=== PATIENT | female | born 1995 | race Caucasian/White ===

== ENCOUNTER 2017-07-05 04:16 | Outpatient (CLI) | payer BC ==
[~2017-07-05] VITALS: Ht 167.6 cm; Wt 78.0 kg
[2017-07-05 04:55] LABS: MICROSCOPIC INDICATED
[2017-07-05] MEDS ORDERED: FLU VACC QS2017-18 (36MOS+) UP/PF 0.5 ML IM-VACC ONE (05:00)
== END 2017-07-05 05:22 | disposition home or self-care (01) ==
LOC: LDOP 04:16
PROVIDERS: ATTEND Obstetrics & Gynecology
DX: O26.892 Other specified pregnancy related conditions, second trimester (principal); R10.9 Unspecified abdominal pain; Z3A.23 23 weeks gestation of pregnancy
CPT/HCPCS: 59025; 81001; 87086; 99201; G0463

== ENCOUNTER 2017-09-01 12:32 | Outpatient (CLI) | payer BC ==
[~2017-09-01] VITALS: Ht 167.6 cm; Wt 90.5 kg
[2017-09-01 12:53] VITALS: BP 133/71
== END 2017-09-01 13:45 | disposition home or self-care (01) ==
LOC: LDOP 12:32
PROVIDERS: ATTEND Obstetrics & Gynecology
DX: O36.8130 Decreased fetal movements, third trimester, not applicable or unspecified (principal); O26.893 Other specified pregnancy related conditions, third trimester; O62.9 Abnormality of forces of labor, unspecified; R10.9 Unspecified abdominal pain; Z3A.31 31 weeks gestation of pregnancy
CPT/HCPCS: 59025; 99211; G0463

== ENCOUNTER 2017-09-18 17:59 | Outpatient (CLI) | payer BC ==
[~2017-09-18] VITALS: Ht 167.6 cm; Wt 90.9 kg
[2017-09-18] MEDS ORDERED: TERBUTALINE 1 MG/ML, 1ML ONE (18:22)
[2017-09-18] MEDS ORDERED: TERBUTALINE 1 MG/ML, 1ML SQ ONE (18:30)
[2017-09-18 18:39] VITALS: BP 147/75
[2017-09-18 19:05] LABS: MICROSCOPIC INDICATED
[2017-09-18 19:39] LABS: BASOPHILS # (AUTO) 0.02 x10^3/uL (0-0.3); BASOPHILS % (AUTO) 0 % (0-1); EOSINOPHILS # (AUTO) 0.01 x10^3/uL (0-0.8); EOSINOPHILS % (AUTO) 0 % (1-7); LYMPHOCYTES # (AUTO) 1.77 x10^3/uL (1-6.1); LYMPHOCYTES % (AUTO) 17 % (22-44); MD NO; MEAN CORPUSCULAR HEMOGLOBIN 32.4 pg (27.0-34.8); MEAN CORPUSCULAR HGB CONC 34.7 g/dL (32.4-35.8); MEAN CORPUSCULAR VOLUME 93.4 fL (80-100); MEAN PLATELET VOLUME 9.6 fL (7.4-10.4); MONOCYTES # (AUTO) 0.41 x10^3/uL (0-1.4); MONOCYTES % (AUTO) 4 % (2-9); NEUTROPHILS # (AUTO) 8.19 x10^3/uL (1.8-8.0); NEUTROPHILS % (AUTO) 79 % (42-75); PLATELET COUNT 172 x10^3/uL (130-400); RED BLOOD COUNT 4.24 x10^6/uL (3.82-5.3); RED CELL DISTRIBUTION WIDTH 13.6 % (9.6-15.2)
[2017-09-18 19:49] LABS: ALANINE AMINOTRANSFERASE 16 U/L (12-78); ALBUMIN 2.8 g/dL (3.4-5.0); ANION GAP 9 mmol/L (5-15); CALCIUM 9.2 mg/dL (8.5-10.1); CHLORIDE 105 mmol/L (98-107); CREATININE 0.72 mg/dL (0.55-1.02)
[2017-09-18 19:50] LABS: ALKALINE PHOSPHATASE 173 U/L (45-117); BILIRUBIN,TOTAL 0.1 mg/dL (0.2-1.0); TOTAL PROTEIN 6.8 g/dL (6.4-8.2)
== END 2017-09-18 20:44 | disposition home or self-care (01) ==
LOC: LDOP 17:59
PROVIDERS: ATTEND Obstetrics & Gynecology
DX: O62.9 Abnormality of forces of labor, unspecified (principal); Z3A.34 34 weeks gestation of pregnancy
CPT/HCPCS: 36415; 59025; 80053; 81001; 82570; 82731; 84156; 84550; 85025; 87086; 99211; J3105; 81050; G0463

== ENCOUNTER 2017-09-29 04:08 | Inpatient (IN) | payer BC ==
[~2017-09-29] VITALS: Ht 167.6 cm; Wt 90.9 kg
[2017-09-29 04:49] VITALS: BP 142/86
[2017-09-29 04:58] LABS: MICROSCOPIC INDICATED
[2017-09-29 06:08] LABS: ALBUMIN 2.5 g/dL (3.4-5.0); ANION GAP 9 mmol/L (5-15); CALCIUM 9.1 mg/dL (8.5-10.1); CHLORIDE 106 mmol/L (98-107)
[2017-09-29 06:12] LABS: ALANINE AMINOTRANSFERASE 20 U/L (12-78); ALKALINE PHOSPHATASE 165 U/L (45-117); BILIRUBIN,TOTAL 0.6 mg/dL (0.2-1.0); CREATININE 0.73 mg/dL (0.55-1.02); TOTAL PROTEIN 6.3 g/dL (6.4-8.2)
[2017-09-29 06:52] LABS: BASOPHILS # (AUTO) 0.02 x10^3/uL (0-0.3); BASOPHILS % (AUTO) 0 % (0-1); EOSINOPHILS # (AUTO) 0.01 x10^3/uL (0-0.8); EOSINOPHILS % (AUTO) 0 % (1-7); LYMPHOCYTES # (AUTO) 1.13 x10^3/uL (1-6.1); LYMPHOCYTES % (AUTO) 11 % (22-44); MD NO; MEAN CORPUSCULAR HEMOGLOBIN 32.4 pg (27.0-34.8); MEAN CORPUSCULAR HGB CONC 34.5 g/dL (32.4-35.8); MEAN CORPUSCULAR VOLUME 93.9 fL (80-100); MEAN PLATELET VOLUME 10.3 fL (7.4-10.4); MONOCYTES # (AUTO) 0.64 x10^3/uL (0-1.4); MONOCYTES % (AUTO) 6 % (2-9); NEUTROPHILS # (AUTO) 8.29 x10^3/uL (1.8-8.0); NEUTROPHILS % (AUTO) 82 % (42-75); PLATELET COUNT 156 x10^3/uL (130-400); RED BLOOD COUNT 3.98 x10^6/uL (3.82-5.3); RED CELL DISTRIBUTION WIDTH 13.6 % (9.6-15.2)
[2017-09-29] MEDS ORDERED: BETAMETHASONE 6 MG/ML, 5ML IM ONE (07:58)
[2017-09-29] MEDS: BETAMETHASONE 6 MG/ML, 5ML IM SCH (08:02)
[2017-09-29] MEDS ORDERED: ACETAMINOPHEN 325 MG TABLET ONE ×2 (10:21→20:26)
[2017-09-29] MEDS: ACETAMINOPHEN 325 MG TABLET PO PRN ×2 (10:23→20:28)
[2017-09-29] MEDS ORDERED: CALCIUM CARBONATE 500 MG TAB.CHEW ONE (20:26)
[2017-09-29] MEDS ORDERED: PRENATAL VIT/IRON/FA 1 EACH TABLET ONE (20:26)
[2017-09-29] MEDS: DOCUSATE 100 MG CAPSULE PO SCH (20:28)
[2017-09-29] MEDS: CALCIUM CARBONATE 500 MG TAB.CHEW PO PRN (20:28)
[2017-09-29] MEDS: PRENATAL VIT/IRON/FA 1 EACH TABLET PO SCH (20:28)
[2017-09-30 05:28] LABS: CHLORIDE 107 mmol/L (98-107)
[2017-09-30 05:33] LABS: BASOPHILS % (AUTO) 0 % (0-1); EOSINOPHILS % (AUTO) 0 % (1-7); LYMPHOCYTES # (AUTO) 1.11 x10^3/uL (1-6.1); LYMPHOCYTES % (AUTO) 8 % (22-44); MD NO; MEAN CORPUSCULAR HEMOGLOBIN 32.6 pg (27.0-34.8); MEAN CORPUSCULAR VOLUME 93.2 fL (80-100); MEAN PLATELET VOLUME 9.8 fL (7.4-10.4); MONOCYTES % (AUTO) 4 % (2-9); NEUTROPHILS # (AUTO) 12.29 x10^3/uL (1.8-8.0); NEUTROPHILS % (AUTO) 88 % (42-75); PLATELET COUNT 164 x10^3/uL (130-400); RED BLOOD COUNT 4.04 x10^6/uL (3.82-5.3); RED CELL DISTRIBUTION WIDTH 13.7 % (9.6-15.2)
[2017-09-30 05:38] LABS: ALANINE AMINOTRANSFERASE 22 U/L (12-78); ALBUMIN 2.5 g/dL (3.4-5.0); ALKALINE PHOSPHATASE 171 U/L (45-117); ANION GAP 7 mmol/L (5-15); BILIRUBIN,TOTAL 0.3 mg/dL (0.2-1.0); CALCIUM 8.6 mg/dL (8.5-10.1); TOTAL PROTEIN 6.3 g/dL (6.4-8.2)
[2017-09-30] MEDS: BETAMETHASONE 6 MG/ML, 5ML IM SCH (07:53)
[2017-09-30] MEDS ORDERED: NEWBORN KIT ONE (08:51)
[2017-09-30] MEDS ORDERED: OXYTOCIN 30U/ 0.9% NaCL 500ML 500 ML IV ONE (08:52)
[2017-09-30] MEDS ORDERED: MISOPROSTOL 25 MCG TABLET VG PRN (09:00)
[2017-09-30] MEDS ORDERED: FENTANYL PF 100 MCG/2ML IVPush PRN (09:00)
[2017-09-30] MEDS: DOCUSATE 100 MG CAPSULE PO SCH ×2 (09:00→21:00)
[2017-09-30] MEDS ORDERED: ONDANSETRON 2MG/ML, 2ML IVPush PRN (09:00)
[2017-09-30] MEDS: LACTATED RINGERS 1,000 ML IV SCH ×3 (09:21→20:54)
[2017-09-30] MEDS ORDERED: OXYTOCIN 30U/ 0.9% NaCL 500ML 500 ML IV PRN (09:32)
[2017-09-30] MEDS ORDERED: AMPICILLIN 2 GM in SODIUM CHLORIDE 0.9% 100 ML IVPB STA (09:32)
[2017-09-30] MEDS ORDERED: OXYTOCIN 30U/ 0.9% NaCL 500ML 500 ML ONE (09:39)
[2017-09-30] MEDS: AMPICILLIN 1 GM in SODIUM CHLORIDE 0.9% 50 ML IVPB SCH ×3 (13:47→22:05)
[2017-09-30] MEDS ORDERED: FENTANYL PF 100 MCG/2ML ONE (16:02)
[2017-09-30] MEDS ORDERED: FENTANYL/BUPIV./NS/PF 250 ML EPIDCONT SCH (17:37)
[2017-09-30] MEDS ORDERED: FENTANYL/BUPIV./NS/PF 250 ML EPIDCONT ONE (17:40)
[2017-09-30] MEDS ORDERED: BUPIVACAINE/PF 0.25% ONE (17:40)
[2017-09-30] MEDS ORDERED: NALOXONE 0.4 MG/ML, 1ML IVPush PRN (18:00)
[2017-09-30] MEDS ORDERED: EPHEDRINE 50 MG/ML, 1ML IVPush PRN (18:00)
[2017-09-30] MEDS ORDERED: LACTATED RINGERS 1,000 ML IVBOLUS PRN (18:00)
[2017-09-30] MEDS ORDERED: CALCIUM CARBONATE 500 MG TAB.CHEW ONE (19:38)
[2017-09-30] MEDS: CALCIUM CARBONATE 500 MG TAB.CHEW PO PRN (19:40)
[2017-09-30] MEDS: PRENATAL VIT/IRON/FA 1 EACH TABLET PO SCH (21:00)
[2017-09-30] MEDS: AMPICILLIN 1 GM in SODIUM CHLORIDE 0.9% 100 ML IVPB SCH (23:00)
[2017-10-01] MEDS ORDERED: LIDOCAINE 1%, 20ML ONE (00:40)
[2017-10-01] MEDS ORDERED: MISOPROSTOL 200 MCG TABLET ONE (00:40)
[2017-10-01] MEDS ORDERED: CALCIUM CARBONATE 500 MG TAB.CHEW ONE (00:47)
[2017-10-01] MEDS: LACTATED RINGERS 1,000 ML IV SCH ×2 (00:52→01:37)
[2017-10-01] MEDS: CALCIUM CARBONATE 500 MG TAB.CHEW PO PRN (00:53)
[2017-10-01] MEDS: OXYTOCIN 30U/ 0.9% NaCL 500ML 500 ML IV SCH ×6 (01:40→12:06)
[2017-10-01] MEDS ORDERED: OXYTOCIN 30U/ 0.9% NaCL 500ML 500 ML ONE (02:06)
[2017-10-01] MEDS ORDERED: ACETAMINOPHEN 325 MG TABLET PO PRN (02:30)
[2017-10-01] MEDS ORDERED: BISACODYL 10 MG SUPP PR PRN (02:30)
[2017-10-01] MEDS ORDERED: ONDANSETRON 2MG/ML, 2ML IV PRN (02:30)
[2017-10-01] MEDS ORDERED: OXYcodone/APAP 5/325MG TABLET PO PRN (02:30)
[2017-10-01] MEDS ORDERED: CALCIUM CARBONATE 500 MG TAB.CHEW PO PRN (02:30)
[2017-10-01] MEDS ORDERED: MISOPROSTOL 200 MCG TABLET PR PRN (02:30)
[2017-10-01] MEDS: AMPICILLIN 1 GM in SODIUM CHLORIDE 0.9% 100 ML IVPB SCH (03:00)
[2017-10-01] MEDS ORDERED: IBUPROFEN 600 MG TABLET ONE (03:58)
[2017-10-01] MEDS ORDERED: OXYcodone/APAP 5/325MG TABLET ONE (03:58)
[2017-10-01] MEDS: IBUPROFEN 600 MG TABLET PO PRN ×2 (04:00→18:33)
[2017-10-01] MEDS: OXYcodone/APAP 5/325MG TABLET PO PRN ×3 (04:00→18:33)
[2017-10-01 04:50] VITALS: BP 130/78
[2017-10-01 08:00] VITALS: BP 128/67
[2017-10-01] MEDS: PRENATAL VIT/IRON/FA 1 EACH TABLET PO SCH (08:46)
[2017-10-01] MEDS: DOCUSATE 100 MG CAPSULE PO PRN (08:47)
[2017-10-01 09:55] LABS: MEAN CORPUSCULAR HEMOGLOBIN 31.9 pg (27.0-34.8); MEAN CORPUSCULAR VOLUME 93.8 fL (80-100); MEAN PLATELET VOLUME 9.6 fL (7.4-10.4); PLATELET COUNT 171 x10^3/uL (130-400); RED BLOOD COUNT 3.84 x10^6/uL (3.82-5.3); RED CELL DISTRIBUTION WIDTH 13.9 % (9.6-15.2)
[2017-10-01 10:14] LABS: BASOPHILS # (AUTO) 0.02 x10^3/uL (0-0.3); BASOPHILS % (AUTO) 0 % (0-1); EOSINOPHILS % (AUTO) 0 % (1-7); LYMPHOCYTES # (AUTO) 1.17 x10^3/uL (1-6.1); LYMPHOCYTES % (AUTO) 6 % (22-44); MD SCAN; MONOCYTES # (AUTO) 0.66 x10^3/uL (0-1.4); MONOCYTES % (AUTO) 4 % (2-9); NEUTROPHILS % (AUTO) 90 % (42-75)
[2017-10-01 12:00] VITALS: BP 117/70
[2017-10-01 16:00] VITALS: BP 120/68
[2017-10-01 21:00] VITALS: BP 124/76
[2017-10-02] MEDS: IBUPROFEN 600 MG TABLET PO PRN ×3 (05:42→23:18)
[2017-10-02] MEDS: PRENATAL VIT/IRON/FA 1 EACH TABLET PO SCH (07:43)
[2017-10-02] MEDS: DOCUSATE 100 MG CAPSULE PO PRN (07:43)
[2017-10-02 07:49] VITALS: BP 107/64
[2017-10-02 20:00] VITALS: BP 124/73
[2017-10-03] MEDS: IBUPROFEN 600 MG TABLET PO PRN (07:31)
[2017-10-03 07:45] VITALS: BP 148/90
[2017-10-03] MEDS: PRENATAL VIT/IRON/FA 1 EACH TABLET PO SCH (09:00)
[2017-10-03] MEDS ORDERED: IBUP-1222 PO (09:04)
[2017-10-03] MEDS ORDERED: DIPH,PERTUSS(ACELL),TET VAC/PF NC IM-VACC ONE ×2 (10:01→10:30)
== END 2017-10-03 10:44 | disposition home or self-care (01) | DRG 775 ==
LOC: LDOP 04:08 → LDIP 07:36 → OBSVTOIN 12:26 → LDIP 09-30 08:46 → 2NW 10-01 04:43
PROVIDERS: ADMIT Obstetrics & Gynecology; ATTEND Obstetrics & Gynecology
PROC: 10E0XZZ Delivery of Products of Conception, External Approach (ICD-10-PCS; principal; 2017-10-01)
PROC: 10907ZC Drainage of Amniotic Fluid, Therapeutic from Products of Conception, Via Natural or Artificial Opening (ICD-10-PCS; 2017-10-01)
PROC: 0HQ9XZZ Repair Perineum Skin, External Approach (ICD-10-PCS; 2017-10-01)
PROC: 3E033VJ Introduction of Other Hormone into Peripheral Vein, Percutaneous Approach (ICD-10-PCS; 2017-10-01)
PROC: 3E0R3BZ Introduction of Anesthetic Agent into Spinal Canal, Percutaneous Approach (ICD-10-PCS; 2017-10-01)
PROC: 00HU33Z Insertion of Infusion Device into Spinal Canal, Percutaneous Approach (ICD-10-PCS; 2017-10-01)
DX: O14.14 Severe pre-eclampsia complicating childbirth (principal); O26.833 Pregnancy related renal disease, third trimester; Z37.0 Single live birth; O99.52 Diseases of the respiratory system complicating childbirth; O99.344 Other mental disorders complicating childbirth; F32.9 Major depressive disorder, single episode, unspecified; J45.909 Unspecified asthma, uncomplicated; N28.9 Disorder of kidney and ureter, unspecified; Z3A.36 36 weeks gestation of pregnancy; O76 Abnormality in fetal heart rate and rhythm complicating labor and delivery; O70.0 First degree perineal laceration during delivery; O69.81X0 Labor and delivery complicated by cord around neck, without compression, not applicable or unspecified; Z23 Encounter for immunization
CPT/HCPCS: 36415; 76816; 80053; 81001; 81050; 84156; 84550; 85025; 86850; 86900; 87081; 87086; 90715; G0378; J0290; J0702; J3010; J3490; J2590; J7120

== ENCOUNTER 2017-10-09 16:05 | Inpatient (IN) | payer BC ==
[~2017-10-09] VITALS: Ht 167.6 cm; Wt 84.2 kg
[~2017-10-09 16:05] MED LIST: IBUP-1222 PO
[2017-10-09] MEDS ORDERED: GENTAMICIN PER PHARMACY MC STA (16:39)
[2017-10-09] MEDS ORDERED: CLINDAMYCIN PMX 900MG/50ML 50 ML IV ONE (17:00)
[2017-10-09] MEDS ORDERED: SODIUM CHLORIDE FLUSH 10ML SYR IVF ONE (17:00)
[2017-10-09] MEDS ORDERED: SODIUM CHLORIDE 0.9% 1,000ML IVBOLUS ONE (17:00)
[2017-10-09] MEDS ORDERED: GENTAMICIN 350 MG in SODIUM CHLORIDE 0.9% 100 ML IV ONE (17:00)
[2017-10-09 17:12] LABS: CLUE CELLS NONE SEEN (NONE SEEN); WET PREP WBCS FEW (FEW)
[2017-10-09 17:19] LABS: BASOPHILS # (AUTO) 0.03 x10^3/uL (0-0.3); BASOPHILS % (AUTO) 0 % (0-1); EOSINOPHILS # (AUTO) 0.04 x10^3/uL (0-0.8); EOSINOPHILS % (AUTO) 0 % (1-7); LYMPHOCYTES # (AUTO) 1.13 x10^3/uL (1-6.1); LYMPHOCYTES % (AUTO) 10 % (22-44); MD NO; MEAN CORPUSCULAR HGB CONC 34.4 g/dL (32.4-35.8); MEAN CORPUSCULAR VOLUME 93.3 fL (80-100); MEAN PLATELET VOLUME 8.4 fL (7.4-10.4); MONOCYTES # (AUTO) 0.53 x10^3/uL (0-1.4); MONOCYTES % (AUTO) 5 % (2-9); NEUTROPHILS # (AUTO) 9.85 x10^3/uL (1.8-8.0); NEUTROPHILS % (AUTO) 85 % (42-75); PLATELET COUNT 289 x10^3/uL (130-400); RED BLOOD COUNT 4.19 x10^6/uL (3.82-5.3); RED CELL DISTRIBUTION WIDTH 13.4 % (9.6-15.2)
[2017-10-09 17:27] LABS: ALBUMIN 3.1 g/dL (3.4-5.0); ANION GAP 9 mmol/L (5-15); CALCIUM 8.3 mg/dL (8.5-10.1); CHLORIDE 107 mmol/L (98-107); CREATININE 0.81 mg/dL (0.55-1.02)
[2017-10-09] MEDS ORDERED: CLINDAMYCIN PMX 900MG/50ML 50 ML ONE (18:49)
[2017-10-09] MEDS ORDERED: ACETAMINOPHEN 325 MG TABLET PO ONE (19:30)
[2017-10-09] MEDS ORDERED: ACETAMINOPHEN 325 MG TABLET ONE (19:34)
[2017-10-09 20:40] VITALS: BP 119/69
[2017-10-09] MEDS ORDERED: GENTAMICIN PER PHARMACY MC PRN (22:00)
[2017-10-09] MEDS ORDERED: ACETAMINOPHEN 325 MG TABLET PO PRN (22:00)
[2017-10-09] MEDS ORDERED: OXYcodone/APAP 5/325MG TABLET PO PRN (22:00)
[2017-10-09] MEDS ORDERED: ONDANSETRON 4 MG TABLET PO PRN (22:00)
[2017-10-09] MEDS ORDERED: ONDANSETRON 2MG/ML, 2ML IV PRN (22:00)
[2017-10-09] MEDS: IBUPROFEN 600 MG TABLET PO PRN (22:15)
[2017-10-09] MEDS ORDERED: PHARMACOKINETIC MONITORING MC PRN (22:30)
[2017-10-10] MEDS: CLINDAMYCIN PMX 900MG/50ML 50 ML IV SCH ×3 (02:39→19:20)
[2017-10-10] MEDS: LACTATED RINGERS 1,000 ML IV SCH ×2 (05:30→15:30)
[2017-10-10 06:32] LABS: BASOPHILS # (AUTO) 0.01 x10^3/uL (0-0.3); BASOPHILS % (AUTO) 0 % (0-1); EOSINOPHILS # (AUTO) 0.05 x10^3/uL (0-0.8); EOSINOPHILS % (AUTO) 1 % (1-7); LYMPHOCYTES # (AUTO) 1.19 x10^3/uL (1-6.1); LYMPHOCYTES % (AUTO) 19 % (22-44); MD NO; MEAN CORPUSCULAR HEMOGLOBIN 31.6 pg (27.0-34.8); MEAN CORPUSCULAR HGB CONC 33.6 g/dL (32.4-35.8); MEAN CORPUSCULAR VOLUME 93.9 fL (80-100); MONOCYTES # (AUTO) 0.44 x10^3/uL (0-1.4); MONOCYTES % (AUTO) 7 % (2-9); NEUTROPHILS # (AUTO) 4.56 x10^3/uL (1.8-8.0); NEUTROPHILS % (AUTO) 73 % (42-75); PLATELET COUNT 266 x10^3/uL (130-400); RED BLOOD COUNT 3.97 x10^6/uL (3.82-5.3)
[2017-10-10 08:00] VITALS: BP 125/76
[2017-10-10] MEDS: IBUPROFEN 600 MG TABLET PO PRN ×2 (09:04→21:32)
[2017-10-10] MEDS: GENTAMICIN 360 MG in SODIUM CHLORIDE 0.9% 100 ML IV SCH (17:26)
[2017-10-10 20:00] VITALS: BP 135/80
[2017-10-11] MEDS: LACTATED RINGERS 1,000 ML IV SCH (01:30)
[2017-10-11] MEDS: CLINDAMYCIN PMX 900MG/50ML 50 ML IV SCH ×2 (02:56→11:09)
[2017-10-11 03:00] VITALS: BP 116/68
[2017-10-11 07:44] VITALS: BP 120/96
[2017-10-11 14:00] VITALS: BP 112/70
[2017-10-11] MEDS: GENTAMICIN 360 MG in SODIUM CHLORIDE 0.9% 100 ML IV SCH (17:24)
== END 2017-10-11 18:59 | disposition home or self-care (01) | DRG 776 ==
LOC: ED 18:30 → EDIP 18:39 → 2NW 20:24
PROVIDERS: ADMIT Obstetrics & Gynecology; ATTEND Obstetrics & Gynecology
DX: O86.12 Endometritis following delivery (principal); N71.0 Acute inflammatory disease of uterus
CPT/HCPCS: 36415; 76830; 80048; 80170; 82040; 83605; 85025; 87040; 87070; 87205; 87210; 87491; 87591; 87808; 96365; 96367; J1580; J7030

== ENCOUNTER 2018-03-23 11:28 | Emergency (ER) | payer BC, OTHER ==
[~2018-03-23] VITALS: Ht 167.6 cm; Wt 87.3 kg
[2018-03-23] MEDS ORDERED: ONDANSETRON ODT 4 MG PO ONE (12:00)
[2018-03-23 12:09] LABS: BASOPHILS # (AUTO) 0.01 x10^3/uL (0-0.3); BASOPHILS % (AUTO) 0 % (0-1); EOSINOPHILS # (AUTO) 0.01 x10^3/uL (0-0.8); EOSINOPHILS % (AUTO) 0 % (1-7); LYMPHOCYTES # (AUTO) 0.32 x10^3/uL (1-6.1); LYMPHOCYTES % (AUTO) 3 % (22-44); MD NO; MEAN CORPUSCULAR HEMOGLOBIN 30.7 pg (27.0-34.8); MEAN CORPUSCULAR HGB CONC 34.7 g/dL (32.4-35.8); MEAN CORPUSCULAR VOLUME 88.4 fL (80-100); MEAN PLATELET VOLUME 8.8 fL (7.4-10.4); MONOCYTES # (AUTO) 0.22 x10^3/uL (0-1.4); MONOCYTES % (AUTO) 2 % (2-9); NEUTROPHILS # (AUTO) 9.19 x10^3/uL (1.8-8.0); NEUTROPHILS % (AUTO) 94 % (42-75); PLATELET COUNT 225 x10^3/uL (130-400); RED BLOOD COUNT 5.03 x10^6/uL (3.82-5.3); RED CELL DISTRIBUTION WIDTH 12.8 % (9.6-15.2)
[2018-03-23] MEDS ORDERED: ONDANSETRON ODT 4 MG ONE (12:10)
[2018-03-23 12:20] LABS: ALBUMIN 4.1 g/dL (3.4-5.0); ANION GAP 8 mmol/L (5-15); CALCIUM 8.8 mg/dL (8.5-10.1); CHLORIDE 109 mmol/L (98-107)
[2018-03-23 12:25] LABS: ALANINE AMINOTRANSFERASE 20 U/L (12-78); ALKALINE PHOSPHATASE 144 U/L (45-117); BILIRUBIN,TOTAL 0.5 mg/dL (0.2-1.0); TOTAL PROTEIN 7.7 g/dL (6.4-8.2)
[2018-03-23 12:31] LABS: MICROSCOPIC INDICATED
[2018-03-23 12:32] LABS: CULTURE INDICATED? YES
[2018-03-23] MEDS ORDERED: KETOROLAC 30 MG/1 ML IM ONE (13:30)
[2018-03-23] MEDS ORDERED: KETOROLAC 30 MG/1 ML ONE (13:34)
[2018-03-23 13:40] VITALS: BP 115/53
== END 2018-03-23 13:55 | disposition home or self-care (01) ==
LOC: ED 12:44
DX: R19.7 Diarrhea, unspecified (principal); R11.2 Nausea with vomiting, unspecified; R10.9 Unspecified abdominal pain; F90.9 Attention-deficit hyperactivity disorder, unspecified type
CPT/HCPCS: 36415; 74021; 80053; 81001; 84703; 85025; 87086; 96372; 99285; J1885; Q0162

== ENCOUNTER 2018-03-23 22:47 | Emergency (ER) | payer BC, OTHER | END 2018-03-23 22:57 | disposition left against medical advice (07) | LOC: ED 22:51 | DX: R50.9 Fever, unspecified (principal); Z53.21 Procedure and treatment not carried out due to patient leaving prior to being seen by health care provider ==

== ENCOUNTER 2018-09-03 18:32 | Emergency (ER) | payer BC, OTHER ==
[~2018-09-03] VITALS: Ht 170.2 cm; Wt 88.0 kg
[2018-09-03 18:40] VITALS: BP 117/71
[2018-09-03 19:45] LABS: RAPID INFLUENZA A POSITIVE (Negative)
[2018-09-03] MEDS ORDERED: ONDANSETRON ODT 4 MG ONE (19:45)
[2018-09-03 19:46] LABS: RAPID INFLUENZA B Negative (Negative)
[2018-09-03] MEDS ORDERED: ONDANSETRON ODT 4 MG PO ONE (20:00)
== END 2018-09-03 19:52 | disposition home or self-care (01) ==
LOC: ED 19:46
DX: J10.1 Influenza due to other identified influenza virus with other respiratory manifestations (principal); F32.9 Major depressive disorder, single episode, unspecified; F41.1 Generalized anxiety disorder; F90.9 Attention-deficit hyperactivity disorder, unspecified type
CPT/HCPCS: 71046; 87400; 99284; Q0162

== ENCOUNTER 2021-02-14 17:35 | Emergency (ER) | payer OTHER ==
[~2021-02-14] VITALS: Ht 167.6 cm; Wt 96.8 kg
[2021-02-14 18:30] LABS: BASOPHILS % (AUTO) 1 % (0-1); EOSINOPHILS % (AUTO) 1 % (1-7); LYMPHOCYTES % (AUTO) 25 % (22-44); MEAN CORPUSCULAR HEMOGLOBIN 31.7 pg (27.0-34.8); MEAN CORPUSCULAR HGB CONC 34.7 g/dL (32.4-35.8); MEAN PLATELET VOLUME 8.2 fL (7.4-10.4); MONOCYTES % (AUTO) 7 % (2-9); NEUTROPHILS % (AUTO) 67 % (42-75); PLATELET COUNT 278 x10^3/uL (130-400); RED BLOOD COUNT 4.61 x10^6/uL (3.82-5.3); RED CELL DISTRIBUTION WIDTH 13.2 % (9.6-15.2)
[2021-02-14 18:37] LABS: ALANINE AMINOTRANSFERASE 25 U/L (12-78); ALBUMIN 3.8 g/dL (3.4-5.0); ANION GAP 5 mmol/L (5-15); CALCIUM 8.7 mg/dL (8.5-10.1); CHLORIDE 106 mmol/L (98-107); CREATININE 0.73 mg/dL (0.55-1.02)
[2021-02-14 18:42] LABS: ALKALINE PHOSPHATASE 120 U/L (45-117); BILIRUBIN,TOTAL 0.3 mg/dL (0.2-1.0); TOTAL PROTEIN 7.3 g/dL (6.4-8.2)
--- NOTE | 2021-02-14 19:24 | NUR ---
patient came into hospital due to having increasingly painful cramps. Patient is currently and is worried that should could be having an ectopic . patient rating pain as a 6/10
[2021-02-14 19:41] LABS: MICROSCOPIC INDICATED
[2021-02-14 20:07] VITALS: BP 120/75
== END 2021-02-14 21:41 | disposition home or self-care (01) ==
LOC: ED 20:45
DX: O23.40 Unspecified infection of urinary tract in pregnancy, unspecified trimester (principal); R10.2 Pelvic and perineal pain; R00.0 Tachycardia, unspecified; J45.909 Unspecified asthma, uncomplicated; Z3A.01 Less than 8 weeks gestation of pregnancy
CPT/HCPCS: 36415; 76801; 80053; 81001; 84702; 85025; 87086; 99284